=== PATIENT | male | born 1990 | race Caucasian/White ===

== ENCOUNTER 2017-04-06 21:35 | Emergency (ER) | payer OTHER ==
[~2017-04-06] VITALS: Ht 180.3 cm; Wt 124.7 kg
[~2017-04-06 21:35] MED LIST: ALBUTEROL0.09 MG/A1 INH; HYDROCORTISONE2.51 TOP; IBUPROFEN800 M1 PO; KEFLEX500 MG PO; MOBIC15 M1 PO; MOTRIN800 MG PO; ZOFRAN4 M1 PO
--- NOTE | 2017-04-06 22:49 | ED UPPER/LOWER EXTREMITY COMPL ---
History of Present Illness General Chief Complaint: Hip Injury Stated Complaint: BILATERAL HIP PAIN, X 3 DAYS Source: patient Exam Limitations: no limitations Vital Signs & Intake/Output Vital Signs & Intake/Output Vital Signs Date Time Temp Pulse Resp B/P B/P Pulse O2 O2 Flow FiO2 Mean Ox Delivery Rate 04/06 2208 100.0 115 18 129/81 97 Room Air Allergies Coded Allergies: Penicillins (Severe, ANAPHYLAXIS 01/07/16) amoxicillin (Severe, ANAPHYLAXIS 01/07/16) azithromycin (Severe, ANAPHYLAXIS 01/07/16) Reconcile Medications Albuterol Sulfate (Albuterol Sulfate Hfa) 0.09 MG/Actuation CYNDI 2 PUFF INH Q4- 6 PRN PRN SHORTNESS OF BREATH (Reported) 90 MCG PER PUFF Cyclobenzaprine HCl 10 MG TABLET 1 TAB PO QPM PRN SPASM DO NOT DRIVE WITH THIS MEDICATION Ibuprofen 800 MG TABLET 1 TAB PO Q6PRN PRN pain Meloxicam (Mobic) 15 MG TABLET 1 TAB PO DAILY PRN PAIN Meloxicam (Mobic) 15 MG TABLET 1 TAB PO DAILY PRN PAIN/INFLAMMATION Methylprednisolone. (Medrol) 4 MG TAB.DS.PK 1 DP PO AD INFLAMMATION 6 on day 1 then reduce by one tablet daily until gone Triage Note: RECEIVED 26 YO MALE C/O BILATERAL HIP PAIN, STARTED ABOUT 2 TO 3 DAYS AGO. PAIN SEEMS TO BE WORSE AFTER LYING DOWN OR WALKING FOR A WHILE. PT DENIES INJURY OR PAST HX OF HIP PAIN. Triage Nurses Notes Reviewed? yes Onset: Abrupt Duration: day(s): (3) Timing: multiple episodes today Severity: mild, moderate Modifying Factors: Worsens With: movement. HPI: This is a 26-year-old obese male with history of asthma and ADHD who presents to the ER for chief complaint of pain in bilateral hips and thighs. He states when he was going to bed a few days ago he felt like he did something and has been having pain ever since. Denies any trauma or fall. He states that he has pain in his left anterior thigh. He also has pain in his right anterior thigh that radiates below the knee. No numbness or tingling. Sometimes his legs do feel we can give way. No symptoms prior to 3 days ago. He took 3 Advil which did not help the pain but he took one dose of Motrin which she had leftover from surgery which seemed to help. Denies any urinary symptoms or bowel symptoms. Past History Travel History Traveled to [place] past 21 day No Medical History Any Pertinent Medical History? see below for history Neurological: NONE EENT: NONE Cardiovascular: NONE Respiratory: asthma Gastrointestinal: NONE Hepatic: NONE Renal: NONE Musculoskeletal: NONE Psychiatric: ADHD Endocrine: NONE Blood Disorders: NONE Cancer(s): NONE QUALITY DIRECTOR/Reproductive: NONE Surgical History Surgical History: N Psychosocial History What is your primary language Polish Tobacco Use: Never used Family History Hx Contributory? No Review of Systems Review of Systems Constitutional: Denies: chills, fever. EENTM: Reports: no symptoms. Respiratory: Reports: no symptoms. Cardiovascular: Reports: no symptoms. Gastrointestinal/Abdominal: Reports: no symptoms. Genitourinary: Reports: no symptoms. Musculoskeletal: Reports: muscle pain. Skin: Reports: no symptoms. Neurological/Psychological: Reports: weakness. Denies: numbness, tingling. Hematologic/Endocrine: Denies: bruising, bleeding. Immunological: Reports: no symptoms. All Other Systems: Reviewed and Negative Physical Exam Physical Exam General Appearance: well developed/nourished, alert, awake, mild distress Head: atraumatic Eyes: Bilateral: PERRL, EOMI. Ears, Nose, Throat: normal pharynx, normal ENT inspection, hearing grossly normal Neck: normal inspection, supple Cardiovascular/Respiratory: regular rate/rhythm Back: normal inspection Leg Left: normal range of motion, normal inspection Leg Right: normal range of motion, normal inspection Hip Left: normal range of motion, normal inspection Hip Right: normal range of motion, normal inspection Knee Left: normal range of motion, normal inspection Knee Right: normal range of motion, normal inspection Foot Left: normal inspection, normal range of motion Foot Right: normal inspection, normal range of motion Lower Extremity Reflexes: 2+: knee (R), knee (L), ankle (R), ankle (L). Neurologic/Tendon: normal sensation, normal motor functions, normal tendon functions Skin: intact, normal color, warm/dry Lymphatic: no anterior cervical du Comments: NO SADDLE ANESTHESIA Progress Differential Diagnosis: sprain, MUSCULOSKELTAL PAIN, DISC DISEASE, CORD COMPRESSION, Plan of Care: Orders Procedure Date/time Status XRY-AP PELVIS 04/06 2257 Active XRY-LUMBOSACRAL SPINE AP & LAT 04/06 2257 Active Current Medications Sig/Leandro Start time Last Medication Dose Stop Time Status Admin Ketorolac 60 MG ONCE ONE 04/06 2300 UNVr Tromethamine 04/06 2301 (Toradol) Prednisone 60 MG ONCE ONE 04/06 2300 UNVr 04/06 2301 Diagnostic Imaging: Viewed by Me: Radiology Read. Discussed w/RAD: Radiology Read. Radiology Impression: PATIENT: GENARO BARNES PRESENT AGE: 26 PATIENT ACCOUNT NO: [id number] : 92 LOCATION: ER ORDERING PHYSICIAN: MERY SCHRADER MD SERVICE DATE: 04/06/17 EXAM TYPE: RAD - XRY-AP PELVIS EXAMINATION: XR PELVIS CLINICAL INFORMATION: Bilateral hip pain COMPARISON: None TECHNIQUE: AP view of the pelvis. FINDINGS: No fracture or dislocation. The femoral heads are positioned within their acetabula. Joint spaces are maintained with no arthritic change. The pelvic rim is intact. The sacroiliac joints and pubic symphysis are intact. The bowel gas pattern is unremarkable. IMPRESSION: Normal pelvis. DICTATED BY: RAMONA COURTNEY MD DATE /TIME DICTATED:04/06/172325 DIRECTOR OF SOCIAL SERVICES:NANI DATE/TIME TRANSCRIBED: 04/06/172325 CONFIDENTIAL, DO NOT COPY WITHOUT APPROPRIATE AUTHORIZATION. < Electronically signed in Other Vendor System> SIGNED BY: RAMONA COURTNEY MD 04/06/172330, PATIENT: GENARO BARNES PRESENT AGE: 26 PATIENT ACCOUNT NO: [id number] : 92 LOCATION: [facility] ORDERING PHYSICIAN: MERY SCHRADER MD SERVICE DATE: 04/06/17 EXAM TYPE: RAD - XRY -LUMBOSACRAL SPINE AP & LAT EXAMINATION: XR LUMBOSACRAL SPINE CLINICAL INFORMATION: Bilateral thigh pain and lower back pain. History of fall. COMPARISON: 05/17/2013 TECHNIQUE: AP and lateral views of the lumbosacral spine were obtained. FINDINGS: No fracture or subluxation. Vertebral bodies and posterior elements are anatomically aligned. Vertebral body heights and intervertebral disc spaces are maintained. The sacroiliac joints are intact. The sacrum is intact. The bowel gas pattern is unremarkable. IMPRESSION: No acute osseous abnormality. DICTATED BY: RAMONA COURTNEY MD DATE/TIME DICTATED:04/06 DIRECTOR OF SOCIAL SERVICES:NANI DATE/TIME TRANSCRIBED:04/06/172320 CONFIDENTIAL, DO NOT COPY WITHOUT APPROPRIATE AUTHORIZATION. <Electronically signed in Other Vendor System> SIGNED BY: RAMONA COURTNEY MD 04/06/172329 Departure Departure Time of Disposition: 2336 Disposition: HOME OR SELF CARE Condition: Stable Clinical Impression Primary Impression: Thigh pain Referrals: ZULEIMA FERGUSON APRN (PCP/Family) Additional Instructions: Take the Medrol Dosepak, Mobic and Flexeril as directed. Follow-up with your doctor in the office for further evaluation. Please return to the any changing or worsening symptoms. Departure Forms: Customer Survey General Discharge Information Prescriptions: Current Visit Scripts Methylprednisolone. (Medrol) 1 DP PO AD #1 DP 6 on day 1 then reduce by one tablet daily until gone Cyclobenzaprine HCl 1 TAB PO QPM PRN SPASM #[address] WITH THIS MEDICATION Meloxicam (Mobic) 1 TAB PO DAILY PRN PAIN #30 TAB
--- NOTE | 2017-04-06 23:30 | RADIOLOGY REPORT ---
EXAMINATION: XR LUMBOSACRAL SPINE CLINICAL INFORMATION: Bilateral thigh pain and lower back pain. History of fall. COMPARISON: 05/17/2013 TECHNIQUE: AP and lateral views of the lumbosacral spine were obtained. FINDINGS: No fracture or subluxation. Vertebral bodies and posterior elements are anatomically aligned. Vertebral body heights and intervertebral disc spaces are maintained. The sacroiliac joints are intact. The sacrum is intact. The bowel gas pattern is unremarkable. IMPRESSION: No acute osseous abnormality.
--- NOTE | 2017-04-06 23:31 | RADIOLOGY REPORT ---
EXAMINATION: XR PELVIS CLINICAL INFORMATION: Bilateral hip pain COMPARISON: None TECHNIQUE: AP view of the pelvis. FINDINGS: No fracture or dislocation. The femoral heads are positioned within their acetabula. Joint spaces are maintained with no arthritic change. The pelvic rim is intact. The sacroiliac joints and pubic symphysis are intact. The bowel gas pattern is unremarkable. IMPRESSION: Normal pelvis.
[2017-04-06] MEDS ORDERED: MOBIC15 M1 PO (23:39)
[2017-04-06] MEDS ORDERED: CYCLOBENZAPRINE10 M1 PO (23:39)
[2017-04-06] MEDS ORDERED: MEDROL4 M2 PO (23:39)
[2017-04-06 23:52] VITALS: BP 126/79
== END 2017-04-06 23:53 ==
LOC: ERH 21:35
DX: M79.652 Pain in left thigh (principal)
CPT/HCPCS: 72100; 72170; 96372; J1885

== ENCOUNTER 2017-04-23 22:44 | Emergency (ER) | payer OTHER ==
[~2017-04-23] VITALS: Ht 182.9 cm; Wt 124.7 kg
[~2017-04-23 22:44] MED LIST changes: +CYCLOBENZAPRINE10 M1 PO; +MEDROL4 M2 PO
[2017-04-24] MEDS ORDERED: BACLOFEN10 M1 PO (01:05)
[2017-04-24] MEDS ORDERED: IBUPROFEN600 M1 PO (01:05)
--- NOTE | 2017-04-24 01:06 | ED UPPER/LOWER EXTREMITY COMPL ---
History of Present Illness General Chief Complaint: General Adult Stated Complaint: PT HIP PAIN, FEVER,CAN'T SLEEP FROM PAIN Source: patient, family, old records Exam Limitations: no limitations Vital Signs & Intake/Output Vital Signs & Intake/Output Vital Signs Date Time Temp Pulse Resp B/P B/P Pulse O2 O2 Flow FiO2 Mean Ox Delivery Rate 04/24 0124 97.3 104 19 129/89 97 Room Air 04/23 2251 97.1 109 20 128/90 97 Room Air ED Intake and Output 04/24 0000 04/23 1200 Intake Total Output Total Balance Patient 275 lb Weight Allergies Coded Allergies: Penicillins (Severe, ANAPHYLAXIS 01/07/16) amoxicillin (Severe, ANAPHYLAXIS 01/07/16) azithromycin (Severe, ANAPHYLAXIS 01/07/16) Reconcile Medications Albuterol Sulfate (Albuterol Sulfate Hfa) 0.09 MG/Actuation CYNDI 2 PUFF INH Q4- 6 PRN PRN SHORTNESS OF BREATH (Reported) 90 MCG PER PUFF Baclofen 10 MG TABLET 1 TAB PO TIDPRN PRN muscle spasm/strain Cyclobenzaprine HCl 10 MG TABLET 1 TAB PO QPM PRN SPASM DO NOT DRIVE WITH THIS MEDICATION Ibuprofen 800 MG TABLET 1 TAB PO Q6PRN PRN pain Ibuprofen 600 MG TABLET 1 TAB PO Q6PRN PRN pain with food Meloxicam (Mobic) 15 MG TABLET 1 TAB PO DAILY PRN PAIN Meloxicam (Mobic) 15 MG TABLET 1 TAB PO DAILY PRN PAIN/INFLAMMATION Methylprednisolone. (Medrol) 4 MG TAB.DS.PK 1 DP PO AD INFLAMMATION 6 on day 1 then reduce by one tablet daily until gone Triage Note: PER PT SEEN A COUPLE WEEKS AGO FOR HIP PAIN, TOLD TO F/U BUT FORGOT TO, AND IT IS BACK. TRIED ADVIL BUT IT DOES NOT WORK ALSO I AM SURE I HAVE HAD A FEVER SINCE MY LAST VISIT. Triage Nurses Notes Reviewed? yes Onset: several weeks Duration: week(s):, constant, continues in ED Timing: recent history Severity: moderate Pain/Injury Location: Bilateral: Hip. Method of Injury: unknown Modifying Factors: Improves With: immobilization, pain medication, rest. Worsens With: movement. Associated Symptoms: GCS 15 since HPI: Several weeks prior to admission patient complains of bilateral inguinal pain described as achy sharp when ambulating margin severity improved with analgesics nonradiating. He was seen with x-rays negative. He made an appointment for primary care but missed the appointment. He denies fever chills nausea vomiting diarrhea abdominal pain chest pain shortness breath headache dysuria rash bleeding fall exertion. Past History Travel History Traveled to [place] past 21 day No Medical History Any Pertinent Medical History? see below for history Neurological: NONE EENT: NONE Cardiovascular: NONE Respiratory: asthma Gastrointestinal: NONE Hepatic: NONE Renal: NONE Musculoskeletal: NONE Psychiatric: ADHD Endocrine: NONE Blood Disorders: NONE Cancer(s): NONE HIGH SCHOOL ASSISTANT PRINCIPAL/Reproductive: NONE Surgical History Surgical History: N Psychosocial History What is your primary language Bulgarian Tobacco Use: Never used Family History Hx Contributory? No Review of Systems Review of Systems Constitutional: Reports: no symptoms. EENTM: Reports: no symptoms. Respiratory: Reports: no symptoms. Cardiovascular: Reports: no symptoms. Gastrointestinal/Abdominal: Reports: no symptoms. Genitourinary: Reports: no symptoms. Musculoskeletal: Reports: see HPI, joint pain, muscle pain. Skin: Reports: no symptoms. Neurological/Psychological: Reports: no symptoms. Hematologic/Endocrine: Reports: no symptoms. Immunological: Reports: no symptoms. All Other Systems: Reviewed and Negative Physical Exam Physical Exam General Appearance: well developed/nourished, alert, awake, anxious, mild distress, obese Head: atraumatic Eyes: Bilateral: PERRL, EOMI. Ears, Nose, Throat: normal pharynx, normal ENT inspection, hearing grossly normal Neck: normal inspection, supple Cardiovascular/Respiratory: regular rate/rhythm Peripheral Pulses: 4+ carotid (R), 4+ carotid (L) Back: normal inspection, normal range of motion Shoulder Left: normal range of motion, normal inspection Shoulder Right: normal range of motion, normal inspection Elbow Left: normal range of motion, normal inspection Elbow Right: normal range of motion, normal inspection Hand Left: normal inspection, normal range of motion Hand Right: normal inspection, normal range of motion Upper Extremity Reflexes: 2+: bicep (R), bicep (L), tricep (R), tricep (L). Leg Left: normal range of motion, normal inspection, soft tissue tenderness ( inguinal) Leg Right: normal range of motion, normal inspection, soft tissue tenderness ( inguinal) Hip Left: normal range of motion, normal inspection Hip Right: normal range of motion, normal inspection Knee Left: normal range of motion, normal inspection Knee Right: normal range of motion, normal inspection Foot Left: normal inspection, normal range of motion Foot Right: normal inspection, normal range of motion Lower Extremity Reflexes: 2+: knee (R), knee (L), ankle (R), ankle (L). Neurologic/Tendon: normal sensation, normal motor functions, normal tendon functions Skin: intact, normal color, warm/dry Lymphatic: no anterior cervical du Progress Differential Diagnosis: contusion, dislocation, fracture, sprain Plan of Care: analgesia muscle relaxant Departure Departure Time of Disposition: 103 Disposition: HOME OR SELF CARE Condition: Stable Clinical Impression Primary Impression: Musculoskeletal pain Referrals: BERNICE ALBARADO,NELSON Levi Call for orthopedic follow up ZULEIMA FERGUSON APRN (PCP/Family) Departure Forms: Customer Survey General Discharge Information Prescriptions: Current Visit Scripts Baclofen 1 TAB PO TIDPRN PRN muscle spasm/strain #30 TAB Ibuprofen 1 TAB PO Q6PRN PRN pain #50 TAB with food
[2017-04-24 01:24] VITALS: BP 129/89
== END 2017-04-24 01:24 ==
LOC: ERH 22:44
DX: M79.1 Myalgia (principal)